=== PATIENT | female | born 1990 | race Caucasian/White ===

== ENCOUNTER → 2018-03-02 | Outpatient (CLI) | payer BC ==
[~2018-03-02] MED LIST: AC500T PO; CEPH250T PO; DCS100C PO; DOCU100C37 PO; HYDR-3720 PO; IBP800T PO; IBUP-1780 PO; OXYC-465 PO; PREN-46 PO
--- NOTE | 2018-03-02 15:38 | Diagnostic Imaging Report ---
INDICATION: Abdominal pain. COMPARISON: None. FINDINGS: Two frontal radiographic views of the abdomen were obtained and demonstrate nondistended loops of small bowel. There is no large collection of free peritoneal air. Moderate air and stool are seen scattered throughout the colon. No unexpected extraosseous calcifications or radiopaque foreign bodies are seen. Bony structures show no gross acute abnormalities. IMPRESSION: 1. Nonobstructed small bowel gas pattern. 2. Moderate colonic air and stool. Please correlate for constipation Dictated by: Dictated on workstation # [id number]
== END ==
LOC: RAD 11:14
PROVIDERS: ATTEND Family Medicine
DX: R10.9 Unspecified abdominal pain (principal)
CPT/HCPCS: 74018

== ENCOUNTER → 2018-12-26 | Outpatient (CLI) | payer BC ==
--- NOTE | 2018-12-26 16:52 | Diagnostic Imaging Report ---
EXAM: Ultrasound OB less than 14 weeks. DATE: December 26, 2018. INDICATION: 28-year-old female, assessment of age and dating. COMPARISON: August 21, 2015. FINDINGS: There is a single living intrauterine . heart is demonstrated at 163 BPM. The estimated gestational age based on today's ultrasound measurements is 9 weeks and 3 days plus/minus 1 week. There is a yolk sac identified. The gestational sac is oval in shape. There is no perigestational fluid collection. Unremarkable appearance of the right ovary which demonstrates blood flow. The left ovary is not well seen. There is no free pelvic fluid. IMPRESSION: 1. Single living intrauterine with an estimated gestational age of 9 weeks and 3 days plus/minus 1 week. This is an estimated date of delivery of July 28, 2019. 2. Unremarkable appearance of the right ovary. 3. The left ovary is not well seen. 4. No free pelvic fluid. Dictated by: Dictated on workstation # [id number]
== END ==
LOC: RAD 15:31
PROVIDERS: ATTEND Family Medicine
DX: Z34.91 Encounter for supervision of normal pregnancy, unspecified, first trimester (principal); Z3A.09 9 weeks gestation of pregnancy
CPT/HCPCS: 76801

== ENCOUNTER → 2019-03-04 | Outpatient (CLI) | payer BC ==
--- NOTE | 2019-03-04 17:02 | Diagnostic Imaging Report ---
INDICATION: survey. TECHNIQUE: Multiple real-time grayscale images were obtained over the gravid uterus. COMPARISON: 12/26/2018. FINDINGS: [place] gestation with heart rate of 142 beats per minute is in variable position. The anatomical survey is normal. There is a nondilated cervix measuring 4.3 cm in length. The placenta is fundal with no abruption or previa. The measurements are congruent and correlate with an average age of 19 weeks 2 days reflecting normal interval growth from initial exam. Biometrical measurements are as follows: Biparietal 4.28 cm, age 19 weeks 0 days. Head circumference 16.42 cm, age 19 weeks 2 days. Abdominal circumference 13.79 cm, age 19 weeks 2 days. Femur length 3.04 cm, age 19 weeks 3 days. Sonographic estimate age: 19 weeks 2 days. Sonographic estimated date of delivery: 07/27/2019. Estimated Weight: 284 gm (+/- 41 gm). LMP percentile: 54%. heart rate: 142 beats per minute. number: 1 of 1. IMPRESSION: [place] gestation in variable position shows normal interval growth measuring 19 weeks 2 days. Dictated by: Dictated on workstation # [id number]
== END ==
LOC: RAD 15:58
PROVIDERS: ATTEND Family Medicine
DX: Z36.89 Encounter for other specified antenatal screening (principal); Z3A.19 19 weeks gestation of pregnancy
CPT/HCPCS: 76805

== ENCOUNTER 2019-07-16 05:41 | Outpatient (CLI) | payer BC ==
[~2019-07-16] VITALS: Ht 170 cm; Wt 90.0 kg
[2019-07-16] MEDS ORDERED: CALC500T7 PO (15:40)
[2019-07-16] MEDS ORDERED: PREN-142 PO (15:40)
[2019-07-22] MEDS ORDERED: IBUP-1780 PO (13:14)
[2019-07-22] MEDS ORDERED: DOCU-143 PO (13:14)
[2019-07-22] MEDS ORDERED: OXYC1TAB12 PO (13:14)
== END 2019-07-16 16:06 | disposition home or self-care (01) ==
LOC: PREOP 05:41
PROVIDERS: ATTEND Obstetrics & Gynecology
DX: Z01.818 Encounter for other preprocedural examination (principal)

== ENCOUNTER 2019-07-22 11:23 | Inpatient (IN) | payer BC ==
[2019-07-22] VITALS (9 sets, daily range): BP systolic 79–109; BP diastolic 54–65
[~2019-07-22] VITALS: Ht 172.7 cm; Wt 90.0 kg
[~2019-07-22 11:23] MED LIST changes: +CALC500T7 PO; +PREN-142 PO
--- NOTE | 2019-07-22 11:30 | NUR ---
WINDY PALOMARES presented to unit via from ED, accompanied by S/O, with c/o . WINDY PALOMARES weighed, gowned, voided, and to bed. EFHM and TOCO applied, VS taken. WINDY PALOMARES oriented to bed controls, call light, TV, heat, and A/C controls.
[2019-07-22] MEDS ORDERED: CITRIC ACID/SOB CIT (BICITRA) 30 ML UDC ONE (11:47)
[2019-07-22] MEDS ORDERED: FAMOTIDINE 20MG/2ML IV (PEPCID) ONE (11:47)
[2019-07-22] MEDS ORDERED: METOCLOPRAMIDE INJ 10 MG/2 ML (REGLAN) ONE (11:47)
[2019-07-22] MEDS ORDERED: metroNIDAZOLE 500MG/100ML IVPB 100 ML ONE (11:48)
[2019-07-22] MEDS ORDERED: DEXAMETHASONE 10 MG/ML (DECADRON) 1 ML VIAL ONE (11:49)
[2019-07-22] MEDS ORDERED: ONDANSETRON 4 MG/2 ML (SDV) Z0FRAN ONE (11:49)
[2019-07-22] MEDS ORDERED: fentaNYL INJECTION 100 MCG/2 ML AMP ONE (11:50)
[2019-07-22] MEDS ORDERED: BUPIVACAINE 0.5% 30 ML (SENSORCAINE) VIAL ONE (11:53)
[2019-07-22] MEDS ORDERED: OXYTOCIN/NORMAL SALINE 1,000 ML IV ONE (11:55)
[2019-07-22] MEDS ORDERED: D5 LR IV SOLUTION 1,000 ML IV SCH ×2 (12:19→14:33)
[2019-07-22] MEDS ORDERED: LACTATED RINGERS 1,000 ML IV SCH ×2 (12:20)
[2019-07-22] MEDS ORDERED: FAMOTIDINE 20MG/2ML IV (PEPCID) IV ONE (12:30)
[2019-07-22] MEDS ORDERED: METOCLOPRAMIDE INJ 10 MG/2 ML (REGLAN) IV ONE (12:30)
[2019-07-22] MEDS ORDERED: CLINDAMYCIN 900 MG/50 ML IVPB 50 ML IV NR (12:30)
[2019-07-22] MEDS ORDERED: CITRIC ACID/SOB CIT (BICITRA) 30 ML UDC PO ONE (12:30)
[2019-07-22] MEDS ORDERED: metroNIDAZOLE 500MG/100ML IVPB 100 ML IV ONE (12:30)
[2019-07-22 12:31] LABS: BASOPHILS % (AUTO) 0 % (0-10); EOSINOPHILS % (AUTO) 0 % (0-10); HEMATOCRIT 39 % (35-52); HEMOGLOBIN 12.5 G/DL (11.5-16.0); LYMPHOCYTES # (AUTO) 2.5 X 10^3 (1.0-4.0); LYMPHOCYTES % (AUTO) 24 % (12-44); MEAN CORPUSCULAR HEMOGLOBIN 27 PG (25-34); MEAN CORPUSCULAR HGB CONC 33 G/DL (32-36); MEAN CORPUSCULAR VOLUME 83 FL (80-99); MEAN PLATELET VOLUME 11.1 FL (7.4-10.4); MONOCYTES # (AUTO) 0.8 X 10^3 (0.0-1.0); MONOCYTES % (AUTO) 8 % (0-12); NEUTROPHILS # (AUTO) 6.9 X 10^3 (1.8-7.8); NEUTROPHILS % (AUTO) 68 % (42-75); PLATELET COUNT 170 10^3/uL (130-400); RED CELL DISTRIBUTION WIDTH 13.9 % (10.0-14.5); WHITE BLOOD COUNT 10.2 10^3/uL (4.3-11.0)
--- NOTE | 2019-07-22 13:13 | Discharge Instructions ---
Discharge Instructions Discharge Medications New, Converted or Re-Newed RX: RX on Chart Patient Instructions Return to The Hospital For: DIRECTED Activity & Diet Discharge Diet: No Restrictions Activity as Tolerated: No Orders-Post D/C & Referrals Follow Up Appt: RTC 1 week for incision check with me Call to make follow up appt. for patient in [address] Calle. Wound Care: Remove be, apply benzoin and steri strips. Activity Per routine post instructions. Please call in RX to patient pharmacy. Diet as tolerated Patient may shower or tub bathe as desired. Continue home meds KEREN SILVERMAN MD Jul 22, 2019 13:13 POS
[2019-07-22] MEDS ORDERED: DOCU-143 PO (13:14)
[2019-07-22] MEDS ORDERED: OXYC1TAB12 PO (13:14)
[2019-07-22] MEDS ORDERED: IBUP-1780 PO (13:14)
[2019-07-22] MEDS ORDERED: KETOROLAC 30 MG/ML VIAL ONE (13:50)
[2019-07-22] MEDS: KETOROLAC 30 MG/ML VIAL IVP SCH ×2 (14:03→20:05)
[2019-07-22] MEDS ORDERED: TETANUS,DIPTH,PERTUSS P/F (BOOSTRIX) 0.5 ML VIAL IM ONE (14:45)
[2019-07-22] MEDS ORDERED: MEASLES,MUMPS,RUBELLA 1 EA INJ SC ONE (14:45)
[2019-07-22] MEDS ORDERED: ONDANSETRON 4 MG/2 ML (SDV) Z0FRAN IVP PRN (14:45)
--- NOTE | 2019-07-22 19:34 | OPERATIVE REPORT ---
DATE OF SERVICE: 07/22/2019 INDICATION: The patient delivered by repeat delivery at 39 weeks gestation a viable male with Apgars of 8 and 9 at 1 and 5 minutes respectively, weight 7 pounds 8 ounces. Cord blood pH of 7.35 and a time of 13:44. OPERATIVE PROCEDURE: Repeat low transverse delivery. WITH AID OF LUBRICATION TECHNICIAN: Dr. Calle. DRILLING SUPERINTENDENT FOR DELIVERY: Dr. Calle. OPERATIVE DESCRIPTION: With the patient in supine position under satisfactory spinal analgesia, she was prepped and draped in the usual fashion for abdominal surgery. Garcia catheter was placed in the urinary bladder. Repeat Pfannenstiel incision made through skin with a scalpel by removing the patient's previous Pfannenstiel incisional scars. The abdomen was entered in the usual manner. Bladder retractor placed in position and clean scalpel used to make a 4 cm hysterotomy incision transversely across the lower uterine segment that was extended bluntly releasing a moderate amount of amniotic fluid that was clear. The infant was delivered via the uterine incision in the usual manner. The was bulb suctioned on delivery of the head. A single nuchal cord was easily released the delivery completed. The umbilical cord doubly clamped and cut and the infant passed to the pediatric nurse in attendance for delivery to have take that back and the taken to the warmer by Dr. Calle, the sagger preparer in attendance for delivery. Cord bloods were obtained. Placenta delivered spontaneously Cano. It was normal with a 3-vessel cord. The uterus was exteriorized and interior wiped clean with a wet laparotomy sponge. Uterine incision was closed with a running locked suture of 2-0 Vicryl. Hemostasis was complete. The uterus was returned to abdominal cavity. All blood clot and debris was removed from the abdominal cavity. With sponge, needle counts correct, hemostasis assured. The anterior parietal peritoneum was closed with running suture of 2-0 Vicryl. Rectus muscles were closed with that suture. Rectus fascia was closed with 2-0 Vicryl, skin was closed with be after closing the subcutaneous tissue with 2-0 Vicryl. Sponge and needle counts were correct on completion of the procedure. Estimated blood loss was around 400 mL. The patient tolerated the procedure well and recovered in the LDR. The baby remained with the mom. Job ID: [id number] DocumentID: [id number] Dictated Date: 07/22/2019 14:05:53 Transformer Mechanic Date: 07/22/2019 19:33:54 Dictated By: KEREN SILVERMAN MD
[2019-07-22] MEDS: DOCUSATE SODIUM 100 MG (COLACE) CAP PO SCH (20:05)
[2019-07-22] MEDS ORDERED: DOCUSATE SODIUM 100 MG (COLACE) CAP PO SCH (21:00)
[2019-07-23] VITALS: BP 92/50
[2019-07-23] MEDS: KETOROLAC 30 MG/ML VIAL IVP SCH (02:50)
[2019-07-23 04:00] VITALS: BP 102/65
--- NOTE | 2019-07-23 07:00 | NUR ---
DR SILVERMAN HERE NO NEW ORDERS, DR TRAN HERE NO NEW ORDERS.
--- NOTE | 2019-07-23 07:00 | NUR ---
REPORT FROM CHAPIS ROLAND.
--- NOTE | 2019-07-23 07:56 | Progress Note ---
Standard Progress Note Progress Notes/Assess & Plan Date Seen by a Provider: Jul 23, 2019 Time Seen by a Provider: 07:55 Progress/Assessment & Plan This patient is without complaint. She is ablating, voiding, tolerating oral intake well has good pain control. Vital Signs Date Time Temp Pulse Resp B/P (MAP) Pulse Ox O2 Delivery O2 Flow Rate FiO2 07/23/19 04:00 36.9 78 18 102/65 (77) 95 Room Air 07/23/19 00:00 36.9 77 18 92/50 (64) 96 Room Air 07/22/19 21:00 98 Room Air 07/22/19 20:03 Room Air 07/22/19 20:00 36.7 80 16 105/59 (74) 97 Room Air 07/22/19 15:00 36.3 18 85/54 (64) 100 Room Air 07/22/19 15:00 Room Air 07/22/19 14:45 Room Air 07/22/19 14:45 36.3 18 79/62 (68) 100 Room Air 07/22/19 14:25 Room Air 07/22/19 14:25 36.4 18 96/64 (75) 100 Room Air 07/22/19 14:10 36.2 20 92/56 (68) 100 Room Air 07/22/19 14:10 Room Air 07/22/19 13:30 83 18 108/65 (79) 100 Room Air 07/22/19 12:32 36.4 88 16 99 Room Air 07/22/19 12:30 83 18 108/65 (79) 100 Room Air 07/22/19 11:45 36.4 88 18 109/64 (79) 100 Room Air I & O 07/23/19 07:00 Intake Total 1850 ml Output Total 1900 ml Balance -50 ml Vital signs are stable. Patient is afebrile. The abdomen is benign. The surgical incision is clean dry and intact. Fundus is firm below the umbilicus and nontender. Extremities show no clubbing cyanosis. There is no Homans sign. Assessment and plan postoperative day number 1 status post repeat d elivery at 39 weeks gestation. Plan is for routine convalescence care KEREN SILVERMAN MD Jul 23, 2019 07:56 POS
[2019-07-23] MEDS: DOCUSATE SODIUM 100 MG (COLACE) CAP PO SCH ×2 (08:27→20:05)
[2019-07-23 09:00] VITALS: BP 101/57
--- NOTE | 2019-07-23 09:00 | NUR ---
INITIAL ASSESSMENT COMPLETED, VSS, NO DISTRESS NOTED, SEE INTERVENTIONS FOR DETAILED ASSESSMENTS, PLAN OF CARE EXPLAINED AND UPDATED, NO QUESTIONS NOTED, PT VERBALIZES UNDERSTANDING OF PLAN OF CARE, SCHEDULE MEDS GIVEN.
[2019-07-23] MEDS ORDERED: IBUPROFEN 800 MG (MOTRIN) TAB PO ONE ×2 (09:10→13:15)
[2019-07-23] MEDS: oxyCODONE/APAP 10/325MG (PERCOCET 10) TABLET PO PRN ×2 (09:15→22:04)
[2019-07-23] MEDS ORDERED: IBUPROFEN 800 MG (MOTRIN) TAB PO SCH (12:00)
[2019-07-23] MEDS: IBUPROFEN 800 MG (MOTRIN) TAB PO SCH ×2 (13:13→20:05)
[2019-07-23] MEDS: OXYTOCIN/NORMAL SALINE 500 ML IV SCH (13:37)
[2019-07-23 13:38] VITALS: BP 129/71
--- NOTE | 2019-07-23 16:48 | Anesthesia-Regional Post-Op ---
Regional Patient Condition Mental Status: Alert, Oriented x3 Circulation: Same as Pre-Op Headache: Absent Sensation: Full Recovery Motor Block: Absent Post Op Complications Complications None Follow Up Care/Instructions Patient Instructions None needed. Anesthesia/Patient Condition Patient is doing well, no complaints, stable vital signs, no apparent adverse anesthesia problems. HEBER ELLIS DO Jul 23, 2019 16:47 POS
[2019-07-23 17:29] VITALS: BP 101/64
--- NOTE | 2019-07-23 17:30 | NUR ---
RUBELLA VACCINE GIVEN.
[2019-07-23 20:05] VITALS: BP 100/62
[2019-07-24 02:38] VITALS: BP 96/61
[2019-07-24] MEDS: IBUPROFEN 800 MG (MOTRIN) TAB PO SCH ×2 (02:38→11:19)
--- NOTE | 2019-07-24 07:52 | NUR ---
here. verbal dismissal orders received.
--- NOTE | 2019-07-24 10:23 | Progress Note ---
Standard Progress Note Progress Notes/Assess & Plan Date Seen by a Provider: Jul 24, 2019 Time Seen by a Provider: 07:40 Progress/Assessment & Plan This patient is without complaint. She is ablating, voiding, tolerating oral intake well has good pain control. Vital Signs Date Time Temp Pulse Resp B/P (MAP) Pulse Ox O2 Delivery O2 Flow Rate FiO2 07/23/19 04:00 36.9 78 18 102/65 (77) 95 Room Air 07/23/19 00:00 36.9 77 18 92/50 (64) 96 Room Air 07/22/19 21:00 98 Room Air 07/22/19 20:03 Room Air 07/22/19 20:00 36.7 80 16 105/59 (74) 97 Room Air 07/22/19 15:00 36.3 18 85/54 (64) 100 Room Air 07/22/19 15:00 Room Air 07/22/19 14:45 Room Air 07/22/19 14:45 36.3 18 79/62 (68) 100 Room Air 07/22/19 14:25 Room Air 07/22/19 14:25 36.4 18 96/64 (75) 100 Room Air 07/22/19 14:10 36.2 20 92/56 (68) 100 Room Air 07/22/19 14:10 Room Air 07/22/19 13:30 83 18 108/65 (79) 100 Room Air 07/22/19 12:32 36.4 88 16 99 Room Air 07/22/19 12:30 83 18 108/65 (79) 100 Room Air 07/22/19 11:45 36.4 88 18 109/64 (79) 100 Room Air I & O 07/23/19 07:00 Intake Total 1850 ml Output Total 1900 ml Balance -50 ml Vital signs are stable. Patient is afebrile. The abdomen is benign. The surgical incision is clean dry and intact. Fundus is firm below the umbilicus and nontender. Extremities show no clubbing cyanosis. There is no Homans sign. Assessment and plan postoperative day number 1 status post repeat d elivery at 39 weeks gestation. Plan is for routine convalescence care 07-24-19 No c/o ready for D/C [employer] Vital Signs Date Time Temp Pulse Resp B/P (MAP) Pulse Ox O2 Delivery O2 Flow Rate FiO2 07/24/19 02:38 36.4 74 18 96/61 (73) 98 Room Air 07/23/19 20:05 36.5 76 18 100/62 (75) 97 Room Air 07/23/19 17:29 36.6 73 18 101/64 (76) 99 Room Air 07/23/19 13:38 37.0 71 18 129/71 (90) 99 Room Air I & O 07/24/19 07:00 Intake Total 1800 ml Output Total 1250 ml Balance 550 ml abd b-9 Ext b-9 A/p POD #2 S/P - home Final Diagnosis 39 week repeat KEREN SILVERMAN MD Jul 24, 2019 10:23
[2019-07-24 11:19] VITALS: BP 119/69
[2019-07-24] MEDS: DOCUSATE SODIUM 100 MG (COLACE) CAP PO SCH (11:19)
[2019-07-24] MEDS: oxyCODONE/APAP 10/325MG (PERCOCET 10) TABLET PO PRN (11:19)
--- NOTE | 2019-07-24 11:19 | NUR ---
initial shift assessment completed, see interventions for further. POC reviewed, states understanding.
--- NOTE | 2019-07-24 11:55 | NUR ---
Tdap given in Rt. deltoid. see eMar for further.
--- NOTE | 2019-07-24 12:00 | NUR ---
be dc'd per Dr's orders. Benzoine and Steri-strips applied. incision edges well approximated, no sx's of infection noted. pt tolerated well.
--- NOTE | 2019-07-24 12:12 | NUR ---
motrin and colace Rx called into [facility] pharmacy per pt's request.
--- NOTE | 2019-07-24 12:20 | NUR ---
pt ambulated to private vehicle with this RN, and infant @ side. secured in rear facing car seat. pt stable with no sx's of distress noted.
[2019-07-27] MEDS ORDERED: IBUPROFEN 800 MG (MOTRIN) TAB PO SCH (18:00)
== END 2019-07-24 12:20 | disposition home or self-care (01) | DRG 788 ==
LOC: LDRP 11:23
PROVIDERS: ADMIT Obstetrics & Gynecology; ATTEND Obstetrics & Gynecology
PROC: 10D00Z1 Extraction of Products of Conception, Low, Open Approach (ICD-10-PCS; principal; 2019-07-22 13:22)
DX: O34.211 Maternal care for low transverse scar from previous cesarean delivery (principal); Z3A.39 39 weeks gestation of pregnancy; Z37.0 Single live birth; Z23 Encounter for immunization
CPT/HCPCS: 36415; 85025; 86850; 86900; 86901; 90707; 90715; 94664

== ENCOUNTER → 2021-07-22 | Outpatient (CLI) | payer OTHER ==
[~2021-07-22] MED LIST changes: +DOCU-143 PO; +GADOTERATE 0.5 MMOL/ML (CLARISCAN) 20 ML VIAL IV ONE; -OXYC-465 PO; +OXYC-556 PO; +OXYC1TAB12 PO
--- NOTE | 2021-07-22 10:10 | Diagnostic Imaging Report ---
PROCEDURE: MR imaging of the brain with and without contrast. TECHNIQUE: Multiplanar, multisequence MR imaging of the brain was performed with and without contrast. INDICATION: Speech difficulty and twitching. COMPARISON: No prior studies are available for comparison. FINDINGS: Ventricles and sulci are within normal limits. There is no sulcal effacement. There is no midline shift. No acute intra-axial or extra-axial hemorrhage is detected. No diffusion restriction is identified. The normal expected flow-voids within the carotid siphons are seen. No periventricular white matter changes are seen. The corpus callosum is unremarkable. The sella and parasellar structures are unremarkable. There is some mucosal thickening within the sphenoid sinus. No abnormal enhancement is identified following contrast administration. IMPRESSION: Essentially unremarkable pre and post contrast MRI of the brain apart from mild sphenoid sinus mucosal disease. Dictated by: Dictated on workstation # [id number]
== END ==
LOC: RAD 08:45
PROVIDERS: ATTEND Family Medicine
DX: J34.89 Other specified disorders of nose and nasal sinuses (principal); R47.9 Unspecified speech disturbances
CPT/HCPCS: 70553

== ENCOUNTER → 2023-05-18 | Outpatient (CLI) | payer BC, OTHER ==
[~2023-05-18] MED LIST changes: -GADOTERATE 0.5 MMOL/ML (CLARISCAN) 20 ML VIAL IV ONE
--- NOTE | 2023-05-18 09:16 | Diagnostic Imaging Report ---
EXAMINATION: Lumbosacral spine 2 or 3 views HISTORY: Low back pain COMPARISON: None available. FINDINGS: Alignment is normal. No fracture is seen. Vertebral body heights are normal. Disc spaces are normal. IMPRESSION: 1. Normal lumbar spine. Dictated by: Dictated on workstation # [id number]
== END ==
LOC: RAD 07:41
PROVIDERS: ATTEND Family Medicine
DX: M54.50 Low back pain, unspecified (principal)
CPT/HCPCS: 72100